=== PATIENT | female | born 1965 | race Caucasian/White ===

== ENCOUNTER 2023-09-25 12:02 | Emergency (ER) | payer OTHER, SELFPAY ==
[2023-09-25 12:06] VITALS: BP 135/67; PULSE 80; RESP 16; TEMP 36.7; O2SAT 97
--- NOTE | 2023-09-25 12:15 | DI.RAD_ITS ---
Exam(s) XR ANKLE RT COMPLETE XR TIB/FIB RT XR HEEL RT OS CALCIS EXAM: XR ANKLE RT COMPLETE CLINICAL HISTORY: fall 6 feet, landed on feet, right ankle pain. TECHNIQUE: 2D digital imaging was performed. Three views of the ankle. Two views of the heel. Two views of the tibia and fibula COMPARISON: CR,XR XR HEEL RT OS CALCIS from 09/25/2023 CR,XR XR TIB/FIB RT from 09/25/2023 FINDINGS: BONES: Comminuted calcaneal fracture with minimal displacement. The fracture extends in the coronal plane through the mid body. Axially oriented fracture fragments also seen extending to the anterior process as well as posterior aspect of the tuberosity. No fractures of the tibia and fibular are adelita ntified. No bony destructive lesion is seen. JOINTS: The ankle mortise is normally aligned. The knee is unremarkable. SOFT TISSUE: Swelling around heel and ankle. IMPRESSION: Mildly displaced comminuted calcaneal fracture. DATA REPOSITORY: RADIATION DOSE DELIVERED:
[2023-09-25] MEDS: Acetaminophen 500 MG TAB 1000 MG PO (12:59)
--- OUTSIDE RECORDS SUMMARY | 2023-09-25 14:01 | XMS_ITS | Continuity of Care Document ---
Author Name [facility] Address [address] [place] [address] Organization [facility] Address [address] [place] [address] Support Name Relationship Address Phone Amalia Taveras Primary Care Provider [address] [place] [address] [address] [place] [address] Amalia Taveras Attending Provider [address] [place] [address] [address] [place], [place] [id number] Kosta Olmos Referring Provider [address] [place] [address] Allergies, Adverse Reactions, Alerts No known allergies. Medications Active Medications Medication Dose Units Route Sig Start Date Status Letrozole 2.5 MG Oral Daily August 31, 2019 Active Cholecalciferol (Vitamin D3) [Vitamin D3] 50 MCG Oral Daily August 31, 2019 Active Problem List No problem information available. Procedures No known history of procedures. Relevant Diagnostic Tests and/or Laboratory Data No known relevant diagnostic tests, laboratory data, and/or discharge summary. Chief Complaint and Reason for Visit Encounter Admit Date Chief Complaint Reason for V isit Departed Clinical May 18, 2021 8:29am [facility] [place] [facility] Discharge Instructions No known hospital discharge instructions. Hospital Discharge Medications Medication Dose Units Route Sig Qty Days Order Date Status Ins tructions Letrozole 2.5 MG Oral Daily August Active Cholecalciferol (Vitamin D3) 50 MCG Oral Daily August 31, 2019 Active Encounters Encounter Facility Location Admit/Visit Date Discharge/Departure Date Attending Provider Departed Clinical [facility] ([facility]) May 18, 2021 8:29am May 18, 2021 8:30am Amalia Taveras Functional Status No known functional status. Immunizations No known immunizations. Plan of Care No Known Plan of Care Information Social History No known social history. Vital Signs No known vital signs results.
--- NOTE | 2023-09-25 14:02 | DI.VRAD_ITS ---
PROCEDURE INFORMATION: Exam: XR Right Calcaneus Exam date and time: 09/25/2023 12:55 PM Age: 58 years old Clinical indication: Injury or trauma; Other: Fall 6 feet, landed on feet, heel pain TECHNIQUE: Imaging protocol: Radiologic exam of the right calcaneus. Views: 2 or more views. COMPARISON: CR XR ANKLE RT COMPLETE 09/25/2023 12:52 PM FINDINGS: Bones/joints: Comminuted minimally displaced fracture of the calcaneus.. Soft tissues: Soft tissue swelling of the foot IMPRESSION: Comminuted minimally displaced fracture of the calcaneus.. Dictated and Authenticated by: Belgica Flores MD. Ordering:JAIDEN Self MD
--- NOTE | 2023-09-25 14:03 | DI.VRAD_ITS ---
PROCEDURE INFORMATION: Exam: XR Right Ankle Exam date and time: 09/25/2023 12:52 PM Age: 58 years old Clinical indication: Injury or trauma; Other: Fall 6 feet, landed on feet, TECHNIQUE: Imaging protocol: Radiologic exam of the right ankle. Views: 3 or more views. COMPARISON: CR XR TIB/FIB RT 09/25/2023 12:51 PM FINDINGS: Bones/joints: Comminuted minimally displaced fracture of the calcaneus. No definite fracture of the distal tibia or fibula. Soft tissues: Soft tissue swelling of the foot IMPRESSION: 1. Comminuted minimally displaced fracture of the calcaneus. 2. No definite fracture of the distal tibia or fibula. Dictated and Authenticated by: Belgica Flores MD. Ordering:JAIDEN Self MD
--- NOTE | 2023-09-25 14:04 | DI.VRAD_ITS ---
PROCEDURE INFORMATION: Exam: XR Right Tibia and Fibula Exam date and time: 09/25/2023 12:51 PM Age: 58 years old Clinical indication: Injury or trauma; Other: Fall 6 feet, landed on feet, TECHNIQUE: Imaging protocol: Radiologic exam of the right tibia and fibula. Views: 2 views. COMPARISON: No relevant prior studies available. FINDINGS: Bones/joints: There is no evidence of acute fracture of the tibia or fibula.There is no evidence of malalignment or dislocation of the tibia or fibula. There is a comminuted minimally displaced fracture of the calcaneus. Soft tissues: Soft tissue swelling of the foot IMPRESSION: 1. There is no evidence of acute fracture of the tibia or fibula.There is no evidence of malalignment or dislocation of the tibia or fibula. 2. There is a comminuted minimally displaced fracture of the calcaneus. Dictated and Authenticated by: Belgica Flores MD. Ordering:JAIDEN Self MD
--- NOTE | 2023-09-25 15:38 | W.ED.GENAD ---
Discharge Plan Disposition Patient Disposition: Home Discharge Details Clinical Impression: Calcaneal fracture Primary Care Provider: Yasmeen,Local ED Provider: Clair London Home Meds and New Rx's Prescriptions: No Action No Known Home Meds Discharge Instructions Instructions: Heel Fracture (DC) Additional Instructions: Ice, elevate Keep your cast dry, follow-up with orthopedics, ankle/foot surgeon Use crutches with ambulation Please be reevaluated immediately with sensation change, acute worsening of pain, or she develop new or worsening symptoms Referrals: Michoacano Levy MD [ [facility] STAFF PHYSICIAN] - HPI General Date/Time Provider Initiated Documentation: 09/25/23 12:03. HPI Narrative: 58-year-old female fell approximately 6 to 7 feet off a ladder, spelling backward when she jumped, landing on her. She predominately has pain to her right heel. She denies any additional trauma. Denies strength or sensation changes. Specifically denies any back pain or head trauma. Related Data Home Medications Medication Instructions Recorded Confirmed Unknown [No Known Home Meds] 09/25/23 09/25/23 Allergies Allergy/AdvReac Type Severity Reaction Status Date / Time No Known Allergies Allergy Unverified 09/25/23 12:09 General Stated Complaint: Orthopedic VASHTI: 4 Exam Narrative Exam Narrative: 58-year-old female presenting in no acute distress with tenderness to palpation to right heel and ankle. Mild tenderness to right proximal leg, knee. No lumbar spine tenderness, no left heel tenderness. Swelling noted only to right ankle and heel. Neurovascularly intact, GCS 15, pupils equal round reactive to light and accommodation alert and oriented x 4, no cervical spine tenderness, neurovascularly intact all 4 extremities, no abdominal tenderness, cardiac rate within normal limits, no respiratory distress, no visible signs of chest wall trauma Course Vital Signs Vital signs: Vital Signs Temperature 36.7 C 09/25/23 12:06 Pulse 80 09/25/23 12:06 Respiratory Rate 16 09/25/23 12:06 Blood Pressure 135/67 09/25/23 12:06 Pulse Oximetry 97 09/25/23 12:06 Temperature 36.7 C 09/25/23 12:06 Temperature Source Temporal Artery Scan 09/25/23 12:06 Pulse 80 09/25/23 12:06 Respiratory Rate 16 09/25/23 12:06 Respiratory Effort Normal, Non-Labored 09/25/23 12:10 Blood Pressure 135/67 09/25/23 12:06 Blood Pressure Position Sitting 09/25/23 12:06 Pulse Oximetry 97 09/25/23 12:06 Oxygen Delivery Method Room Air 09/25/23 12:06 Oxygen Flow Rate 0 09/25/23 12:06 Procedures Orthopedic Splinting/Casting Injury #1: Side: right Lower Extremity Injury Location: foot Lower Extremity Immobilizer: posterior splint Other Orthopedic Equipment: crutches Medical Decision Making 58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 Fell landing on her feet off a ladder. Alert and oriented and specifically denies any head injury or neck pain. Denies any back pain. Unable to ambulate secondary to pain on right foot. Took ibuprofen prior to arrival. Asking for Tylenol. X-ray per my interpretation pending radiology will review as a mildly displaced calcaneus fracture. She is placed in a posterior with padding. She is given crutches. She does not live locally. Patient denies any change in neurovascular status. GCS 15 at time of discharge home, declines any imaging of lumbar spine or left heel. Placed in a splint, remains neurovascularly intact pre and postprocedure Quality:SDOH Health Related Social Needs: No Data to Display [facility] All Active Problems (Updated 09/25/23 @ 14:00 by MANE Ellison) Calcaneal fracture (Acute) Social History Smoking/Tobacco Use Status: Never Smoking risk assessment performed?: Yes Alcohol Intake: current Alcohol Intake frequency: a few times a week Drug use: Never Substance use type: does not use PAWSS Have you Been Recently Intoxicated or Drunk Within the Last 30 days?: No Have you Ever Experienced Previous Episodes of Alcohol Withdrawal?: No Have you ever Experienced Withdrawal Seizures?: No Have you ever Experienced Delirium Tremens(DT)s?: No Have you ever undergone Alcohol Rehabilitation Treatment (i.e, inpt ot outpatient treatment programs)?: No Have you ever Experienced Blackouts?: No Have you ever Combined Alcohol with other Downers within the last 90 days?: No Have you ever Combined Alcohol with any other Substance of Abuse during the last 90 days?: No Positive Blood Alcohol level on Presentation? [PCS.BAL]: No Evidence of Increased Autonomic Activity (i.e. HR>120, tremor, sweating, agitation, nausea)?: No Result: 0
== END 2023-09-25 14:26 | disposition home or self-care (01) ==
PROVIDERS: Emergency Provider Physician Assistant
DX: S92.011A Displaced fracture of body of right calcaneus, initial encounter for closed fracture (principal); W11.XXXA Fall on and from ladder, initial encounter
CPT/HCPCS: 29515; 99283; 73590; 73610; 73650